=== PATIENT | female | born 1970 | race Caucasian/White ===

== ENCOUNTER 2023-08-27 13:05 | Emergency (ER) | payer SELFPAY | END 2023-08-27 14:28 | disposition home or self-care (01) | LOC: MADERS 13:05 | DX: J01.90 Acute sinusitis, unspecified (principal) | CPT/HCPCS: 71046 ==

== ENCOUNTER 2024-01-12 04:37 | Emergency (ER) | payer SELFPAY ==
[2024-01-12] MEDS ORDERED: Ketorolac Tromethamine 60 MG/2 ML VIAL ONE (04:57)
[2024-01-12] MEDS ORDERED: Ondansetron ODT 4 MG TAB ONE (05:01)
== END 2024-01-12 06:07 | disposition home or self-care (01) ==
LOC: MADERS 04:37
DX: M54.9 Dorsalgia, unspecified (principal); G89.29 Other chronic pain
CPT/HCPCS: 72072; 72100; 96372; 99283; J1885; Q0162

== ENCOUNTER 2024-01-13 16:57 | Emergency (ER) | payer SELFPAY ==
[2024-01-13] MEDS ORDERED: Morphine 4 MG/ML VIAL ONE ×2 (17:37→20:33)
[2024-01-13] MEDS ORDERED: Acetaminophen 325 MG TAB ONE (17:37)
[2024-01-13] MEDS ORDERED: Methocarbamol 1 GM (10 mL) VIAL ONE (17:37)
[2024-01-13] MEDS ORDERED: Promethazine HCl 25 MG/ML VIAL ONE (17:38)
[2024-01-13] MEDS ORDERED: Sodium Chloride 0.9% 100 ML ONE (17:38)
[2024-01-13] MEDS ORDERED: Sodium Chloride 0.9% 50 ML ONE (17:38)
[2024-01-13 18:20] LABS: #Lymphocytes 0.8 thou/uL (1.20-3.40); #Monocytes 0.8 thou/uL (0.11-0.59); #Neutrophils 8.7 thou/uL (1.40-6.50); %Basophils 0.4 % (0.0-1.0); %Lymphocytes 7.6 % (21.0-51.0); %Monocytes 7.3 % (0.0-10.0); %Neutrophils 84.6 % (42.0-75.0); Hematocrit 41.5 % (36.0-47.0); Hemoglobin 13.5 g/dL (12.0-16.0); Mean Corpuscular HGB CONC 32.6 g/dL (32.0-36.0); Mean Corpuscular Hemoglobin 27.3 pg (27.0-31.0); Mean Corpuscular Volume 83.8 fl (78.0-98.0); Mean Platelet Volume 10.3 fL (7.4-10.4); Platelet Count 227 10x3/uL (130-400); RBC Distribution Width 12.3 % (11.5-14.5); Red Blood Cell (RBC) Count 4.95 mill/uL (4.20-5.40); White Blood Cell (WBC) Count 10.2 10x3/uL (4.8-10.8)
[2024-01-13 18:31] LABS: ALT (SGPT) 11 U/L (8-55); AST (SGOT) 15 U/L (5-34); Albumin 3.7 g/dL (3.5-5.0); Alkaline Phosphatase 50 U/L (40-110); Anion Gap 17 mmol/L (10-20); BUN (Urea Nitrogen) 20 mg/dL (9.8-20.1); Bilirubin, Total 1.1 mg/dL (0.2-1.2); Calc. Creatinine Clearance 0 mL/min (70-130); Calcium 9.1 mg/dL (7.8-10.44); Carbon Dioxide 27 mmol/L (22-29); Chloride 100 mmol/L (98-107); Estimated GFR 81; Globulin 3.6 g/dL (2.4-3.5); Glucose 112 mg/dL (70-105); Potassium 3.5 mmol/L (3.5-5.1); Protein, Total 7.3 g/dL (6.0-8.3); Sodium 140 mmol/L (136-145)
== END 2024-01-13 21:05 | disposition home or self-care (01) ==
LOC: MADERS 16:57
DX: M54.50 Low back pain, unspecified (principal)
CPT/HCPCS: 36415; 80053; 85025; 86140; 96365; 96368; 96375; 96376; J2272; J2550; J2800